=== PATIENT | female | born 1980 | race Caucasian/White ===

== ENCOUNTER 2016-06-15 15:58 | Emergency (ER) | payer OTHER ==
[~2016-06-15] VITALS: Wt 71.7 kg
[~2016-06-15 15:58] MED LIST: 'PARAFON FORTE500 M1 PO; AMOXICILLIN500 MG PO; ANAPROX DS550 MG PO; ATIVAN1 MG PO; AUGMENTIN 875875 MG PO; BACTRIM DS 8001 TA1 PO; CEPHALEXIN500 M1 PO; CIPRO500 MG PO; CIPROFLOXACIN500 MG PO; CLINDAMYCIN150 MG PO; CYCLOBENZAPRINE10 MG PO; DAYPRO600 M1 PO; DIAZEPAM2 MG PO; FLAGYL500 MG PO; GEODON20 MG PO; GEODON40 MG PO; HYDROCODONE BIT1 T11 PO; HYDROCORTISON28.4 G4 T; KEFLEX500 MG PO; LAMICTAL25 MG PO; MACRODANTIN100 M1 PO; MINIPRESS PO; MOTRIN800 MG PO; Motrin,Rufen800 MG PO; NAPROSYN500 MG PO; NORCO 325 MG-51 TAB PO; OMEPRAZOLE D/R20 MG PO; PENICILLIN VK500 MG PO; PERCOCET 325 MG1 TA2 PO; PRAZOSIN HCL2 MG PO; PREDNISONE20 M1 PO; PREDNISONE50 MG PO; PRENATAL1 TA3 PO; PROZAC10 MG PO; ROBAXIN750 MG PO; SEROQUEL400 MG PO; TRAMADOL HCL50 MG PO; TYLENOL WITH CO1 TA1 PO; VIBRA-TAB100 MG PO; VICODIN 5/500 505 MG PO; VICODIN 500 MG-1 TAB PO; VICODIN ES 7501 TAB PO; VOLTAREN50 M1 PO; XANAX0.5 MG PO; XANAX2 MG PO; ZANTAC150 MG PO; ZOFRAN4 MG PO; ZYRTEC10 MG PO; Zofran4 MG PO
[2016-06-15 16:09] VITALS: BP 115/77
[2016-06-15 16:44] LABS: BILIRUBIN NEGATIVE (NEGATIVE); BLOOD NEGATIVE (NEGATIVE); CLARITY SL CLOUDY (CLEAR); COLOR YELLOW (YELLOW); GLUCOSE NEGATIVE (NEGATIVE); KETONE NEGATIVE (NEGATIVE); LEUKO ESTERASE TRACE (NEGATIVE); NITRITE NEGATIVE (NEGATIVE); PH 6.5 (5.0-9.0); PROTEIN NEGATIVE (NEGATIVE); SPECIFIC GRAVITY 1.025 (1.005-1.030); UROBILINOGEN 0.2 E.U./dl (0.2-1.0)
[2016-06-15 16:54] LABS: BACTERIA 3+; MUCOUS TRACE; RBC 0-2 rbc/hpf (0-2); URINE REFLEX COMMENT YES (NO)
[2016-06-15] MEDS ORDERED: MACROBID100 M1 PO (17:21)
== END 2016-06-15 17:36 | disposition home or self-care (01) ==
LOC: ED 15:58
PROVIDERS: Emergency Medicine
DX: O23.43 Unspecified infection of urinary tract in pregnancy, third trimester (principal); Z3A.35 35 weeks gestation of pregnancy; F17.200 Nicotine dependence, unspecified, uncomplicated; F41.9 Anxiety disorder, unspecified; G89.29 Other chronic pain; M54.9 Dorsalgia, unspecified; Z87.442 Personal history of urinary calculi; Z88.6 Allergy status to analgesic agent

== ENCOUNTER 2016-08-04 20:10 | Emergency (ER) | payer OTHER ==
[~2016-08-04] VITALS: Ht 157.4 cm; Wt 46.7 kg
[~2016-08-04 20:10] MED LIST changes: +MACROBID100 M1 PO
[2016-08-04 20:38] VITALS: BP 100/76
[2016-08-04] MEDS ORDERED: CLINDAMYCIN150 MG PO (20:50)
[2016-08-04] MEDS ORDERED: Motrin,Rufen800 MG PO (20:50)
== END 2016-08-04 20:59 | disposition home or self-care (01) ==
LOC: ED 20:10
DX: K08.89 Other specified disorders of teeth and supporting structures (principal); F17.200 Nicotine dependence, unspecified, uncomplicated; F41.9 Anxiety disorder, unspecified; G89.29 Other chronic pain; M54.9 Dorsalgia, unspecified; Z88.6 Allergy status to analgesic agent; Z87.442 Personal history of urinary calculi; Z98.890 Other specified postprocedural states; Z79.899 Other long term (current) drug therapy

== ENCOUNTER 2018-12-06 15:40 | Emergency (ER) | payer OTHER ==
[~2018-12-06] VITALS: Ht 154.9 cm; Wt 45.4 kg
[2018-12-06 15:44] VITALS: BP 111/79
== END 2018-12-06 16:49 | disposition home or self-care (01) ==
LOC: ED 15:40
DX: R53.81 Other malaise (principal); R25.2 Cramp and spasm; Z76.0 Encounter for issue of repeat prescription; F17.200 Nicotine dependence, unspecified, uncomplicated; Z98.890 Other specified postprocedural states; Z88.6 Allergy status to analgesic agent

== ENCOUNTER 2018-12-26 06:21 | Emergency (ER) | payer OTHER ==
[~2018-12-26] VITALS: Ht 154.9 cm; Wt 53.1 kg
[2018-12-26 07:24] VITALS: BP 111/57
[2018-12-26 08:01] LABS: BASO % 0.5 % (0.0-1.0); EOS # 0.1 10*3/uL (0.0-0.4); EOS % 0.9 % (1.0-4.0); HEMATOCRIT 36.7 % (37.0-47.0); HEMOGLOBIN 12.2 g/dl (12.0-16.0); LYMPH # 1.4 10*3/uL (1.3-4.4); LYMPH % 17.5 % (27.0-41.0); MEAN CELL VOLUME 94.3 fl (81.0-99.0); MEAN CORPUSCULAR HGB 31.4 pg (27.0-31.0); MEAN CORPUSCULAR HGB CONC 33.2 g/dl (33.0-37.0); MEAN PLATELET VOLUME 9.5 fl (9.6-12.3); MONO # 0.6 10*3/uL (0.1-1.0); MONO % 8.2 % (3.0-9.0); NEUT # 5.7 10*3/uL (2.3-7.9); NEUT % 72.6 % (47.0-73.0); PLATELET COUNT AUTOMATED 215 10*3/uL (130-400); RED BLOOD COUNT 3.89 10*6/uL (4.10-5.10); WHITE BLOOD COUNT 7.8 10*3/uL (4.8-10.8)
[2018-12-26 08:15] LABS: ALBUMIN 4.1 gm/dl (3.1-4.5); ALKALINE PHOSPHATASE 62 U/L (45-117); BUN 15 mg/dl (7-24); CHLORIDE 108 mmol/L (98-107); CREATININE 0.77 mg/dL (0.55-1.02); POTASSIUM 3.4 mmol/L (3.5-5.1); SGOT/AST 23 IU/L (3-35); SGPT/ALT 39 U/L (12-78); SODIUM 138 mmol/L (136-145); TOTAL PROTEIN 7.2 gm/dL (6.4-8.2)
[2018-12-26 08:17] LABS: ETHYL ALCOHOL < 3.0 mg/dl (<3)
== END 2018-12-26 12:45 | disposition home or self-care (01) ==
LOC: ED 06:21
PROVIDERS: Emergency Medicine
DX: G89.29 Other chronic pain (principal); M54.9 Dorsalgia, unspecified; F17.200 Nicotine dependence, unspecified, uncomplicated; Z87.442 Personal history of urinary calculi

== ENCOUNTER 2021-01-18 04:07 | Emergency (ER) | payer OTHER ==
[2021-01-18 04:09] VITALS: BP 117/77
== END 2021-01-18 04:18 | disposition left against medical advice (07) ==
LOC: ED 04:07
DX: T50.901A Poisoning by unspecified drugs, medicaments and biological substances, accidental (unintentional), initial encounter (principal); R40.4 Transient alteration of awareness; Y92.89 Other specified places as the place of occurrence of the external cause

== ENCOUNTER 2022-03-09 20:51 | Emergency (ER) | payer OTHER ==
[~2022-03-09] VITALS: Ht 1554 cm; Wt 56.7 kg
[2022-03-09 21:18] VITALS: BP 130/52
[2022-03-09 22:12] LABS: BILIRUBIN Negative (Negative); BLOOD Negative (Negative); CLARITY Cloudy (Clear); COLOR Yellow (Yellow); GLUCOSE Negative (Negative); KETONE Negative (Negative); LEUKO ESTERASE 2+ (Negative); NITRITE Positive (Negative); SPECIFIC GRAVITY 1.025 (1.001-1.030); UROBILINOGEN 0.2 E.U./dl (0.0-1.0)
[2022-03-09 22:20] LABS: BACTERIA 2+; WBC 41-50 wbc/hpf (0-5)
[2022-03-09] MEDS ORDERED: CIPRO500 MG PO (22:31)
== END 2022-03-09 23:25 | disposition home or self-care (01) ==
LOC: ED 20:51
PROVIDERS: Internal Medicine
DX: N39.0 Urinary tract infection, site not specified (principal); Z87.891 Personal history of nicotine dependence

== ENCOUNTER 2022-04-21 18:39 | Emergency (ER) | payer OTHER ==
[~2022-04-21] VITALS: Wt 49.9 kg
[2022-04-21 20:54] LABS: BASO % 0.1 % (0.0-1.0); EOS # 0.2 10*3/uL (0.0-0.4); EOS % 1.1 % (1.0-4.0); HEMATOCRIT 38.4 % (37.0-47.0); LYMPH # 1.3 10*3/uL (1.3-4.4); LYMPH % 7.8 % (27.0-41.0); MEAN CELL VOLUME 89.1 fl (81.0-99.0); MEAN CORPUSCULAR HGB 30.2 pg (27.0-31.0); MEAN CORPUSCULAR HGB CONC 33.9 g/dl (33.0-37.0); MEAN PLATELET VOLUME 9.5 fl (9.6-12.3); MONO # 0.9 10*3/uL (0.1-1.0); MONO % 5.8 % (3.0-9.0); NEUT # 13.7 10*3/uL (2.3-7.9); NEUT % 84.8 % (47.0-73.0); PLATELET COUNT AUTOMATED 225 10*3/uL (130-400); RED BLOOD COUNT 4.31 10*6/uL (4.10-5.10); RED CELL DISTRI WIDTH 13.4 % (0-14.5); WHITE BLOOD COUNT 16.2 10*3/uL (4.8-10.8)
[2022-04-21 21:09] VITALS: BP 102/57
[2022-04-21 21:09] LABS: ALKALINE PHOSPHATASE 87 U/L (46-116); BUN 19 mg/dl (9-23); CHLORIDE 103 mmol/L (98-107); LIPASE 44 U/L (12-53); POTASSIUM 4.5 mmol/L (3.4-5.1); SGPT/ALT 38 U/L (10-49); TOTAL PROTEIN 7.8 gm/dL (6.0-8.0)
[2022-04-21 22:55] LABS: BILIRUBIN Negative (Negative); BLOOD Negative (Negative); CLARITY Cloudy (Clear); COLOR Yellow (Yellow); GLUCOSE Negative (Negative); KETONE 1+ (Negative); LEUKO ESTERASE 1+ (Negative); NITRITE Negative (Negative); SPECIFIC GRAVITY 1.025 (1.001-1.030)
[2022-04-21 23:01] LABS: URINE AMPHETAMINES Positive (1000ng/ml); URINE BARBITURATES Negative (200ng/ml); URINE BENZODIAZEPINES Negative (200ng/ml); URINE CANNABINOIDS (THC) Negative (50ng/ml); URINE COCAINE Negative (300ng/ml); URINE METHADONE Negative (300ng/ml); URINE OPIATES Negative (300ng/ml); URINE PHENCYCLIDINE Negative (25ng/ml)
[2022-04-21 23:10] LABS: URIC ACID CRYSTALS 2+
== END 2022-04-22 00:35 | disposition left against medical advice (07) ==
LOC: ED 18:39
PROVIDERS: Emergency Medicine
DX: K52.9 Noninfective gastroenteritis and colitis, unspecified (principal); R11.10 Vomiting, unspecified; Z79.899 Other long term (current) drug therapy

== ENCOUNTER 2022-06-28 13:54 | Emergency (ER) | payer OTHER ==
[~2022-06-28] VITALS: Ht 154.9 cm; Wt 54.4 kg
[2022-06-28 13:59] VITALS: BP 115/78
== END 2022-06-28 14:08 | disposition left against medical advice (07) ==
LOC: ED 13:54
DX: T50.904A Poisoning by unspecified drugs, medicaments and biological substances, undetermined, initial encounter (principal); Z87.442 Personal history of urinary calculi; Y92.89 Other specified places as the place of occurrence of the external cause

== ENCOUNTER 2022-07-06 16:36 | Emergency (ER) | payer OTHER | END 2022-07-06 17:58 | disposition left against medical advice (07) | LOC: ED 16:36 | DX: S89.91XA Unspecified injury of right lower leg, initial encounter (principal); Z53.21 Procedure and treatment not carried out due to patient leaving prior to being seen by health care provider; X58.XXXA Exposure to other specified factors, initial encounter; Y93.89 Activity, other specified; Y92.89 Other specified places as the place of occurrence of the external cause; Y99.8 Other external cause status ==

== ENCOUNTER 2022-07-09 13:34 | Emergency (ER) | payer OTHER ==
[~2022-07-09] VITALS: Ht 154.9 cm; Wt 56.7 kg
[2022-07-09 13:44] VITALS: BP 108/62
== END 2022-07-09 16:04 | disposition home or self-care (01) ==
LOC: ED 13:34
DX: S83.91XA Sprain of unspecified site of right knee, initial encounter (principal); Z87.442 Personal history of urinary calculi; Z98.890 Other specified postprocedural states; F17.200 Nicotine dependence, unspecified, uncomplicated; W01.0XXA Fall on same level from slipping, tripping and stumbling without subsequent striking against object, initial encounter; Y93.89 Activity, other specified; Y92.149 Unspecified place in prison as the place of occurrence of the external cause; Y99.8 Other external cause status

== ENCOUNTER → 2022-07-28 | Outpatient (CLI) | payer OTHER | END | disposition home or self-care (01) | LOC: MRI 13:00 | PROVIDERS: ATTEND Family Medicine | DX: S83.501D Sprain of unspecified cruciate ligament of right knee, subsequent encounter (principal); M25.461 Effusion, right knee; R60.0 Localized edema; X58.XXXD Exposure to other specified factors, subsequent encounter ==

== ENCOUNTER 2022-08-26 15:35 | Emergency (ER) | payer OTHER ==
[2022-08-26 16:09] VITALS: BP 120/65
[2022-08-26] MEDS ORDERED: CLINDAMYCIN HC300 MG PO (16:15)
== END 2022-08-26 17:24 | disposition home or self-care (01) ==
LOC: ED 15:35
DX: K13.0 Diseases of lips (principal); K04.7 Periapical abscess without sinus; Z98.890 Other specified postprocedural states; F17.200 Nicotine dependence, unspecified, uncomplicated

== ENCOUNTER 2022-09-15 11:06 | Emergency (ER) | payer OTHER ==
[~2022-09-15 11:06] MED LIST changes: +CLINDAMYCIN HC300 MG PO
== END 2022-09-15 11:18 | disposition left against medical advice (07) ==
LOC: ED 11:06
DX: T74.21XA Adult sexual abuse, confirmed, initial encounter (principal); Z53.21 Procedure and treatment not carried out due to patient leaving prior to being seen by health care provider

== ENCOUNTER 2022-09-18 23:13 | Emergency (ER) | payer OTHER ==
[~2022-09-18] VITALS: Ht 157.4 cm; Wt 51.7 kg
[2022-09-18 23:20] VITALS: BP 112/70
[2022-09-18 23:47] LABS: BASO % 0.2 % (0.0-1.0); EOS % 0.4 % (1.0-4.0); HEMATOCRIT 30.2 % (37.0-47.0); LYMPH # 1.9 10*3/uL (1.3-4.4); MEAN CELL VOLUME 91.5 fl (81.0-99.0); MEAN CORPUSCULAR HGB CONC 32.8 g/dl (33.0-37.0); MEAN PLATELET VOLUME 9.1 fl (9.6-12.3); MONO # 0.6 10*3/uL (0.1-1.0); MONO % 5.7 % (3.0-9.0); NEUT # 7.5 10*3/uL (2.3-7.9); NEUT % 74.4 % (47.0-73.0); PLATELET COUNT AUTOMATED 192 10*3/uL (130-400); WHITE BLOOD COUNT 10.1 10*3/uL (4.8-10.8)
[2022-09-19 00:03] LABS: ACT PARTIAL THROMBO TIME 27.6 SECONDS (20.0-32.1)
[2022-09-19 00:10] LABS: ALKALINE PHOSPHATASE 71 U/L (46-116); BUN 13 mg/dl (9-23); CHLORIDE 104 mmol/L (98-107); POTASSIUM 3.5 mmol/L (3.4-5.1); SGPT/ALT 30 U/L (10-49); TOTAL PROTEIN 6.9 gm/dL (6.0-8.0)
[2022-09-19 00:13] LABS: BILIRUBIN Negative (Negative); BLOOD Negative (Negative); CLARITY Cloudy (Clear); COLOR Yellow (Yellow); GLUCOSE Negative (Negative); KETONE Trace (Negative); LEUKO ESTERASE Trace (Negative); NITRITE Negative (Negative); SPECIFIC GRAVITY 1.025 (1.001-1.030)
[2022-09-19 00:19] LABS: URINE AMPHETAMINES Positive (1000ng/ml); URINE BARBITURATES Negative (200ng/ml); URINE BENZODIAZEPINES Positive (200ng/ml); URINE CANNABINOIDS (THC) Negative (50ng/ml); URINE COCAINE Positive (300ng/ml); URINE METHADONE Negative (300ng/ml); URINE OPIATES Positive (300ng/ml); URINE PHENCYCLIDINE Negative (25ng/ml)
[2022-09-19 00:26] LABS: BACTERIA 1+; MUCOUS 1+
== END 2022-09-19 00:55 | disposition home or self-care (01) ==
LOC: ED 23:13
PROVIDERS: Internal Medicine
DX: R09.1 Pleurisy (principal); Z98.890 Other specified postprocedural states; F17.210 Nicotine dependence, cigarettes, uncomplicated; Z87.442 Personal history of urinary calculi; Z79.899 Other long term (current) drug therapy

== ENCOUNTER 2023-03-13 19:19 | Emergency (ER) | payer OTHER ==
[~2023-03-13] VITALS: Ht 152.4 cm; Wt 56.7 kg
[2023-03-13 19:36] VITALS: BP 150/73
[2023-03-13] MEDS ORDERED: VIBRAMYCIN100 MG PO (19:37)
== END 2023-03-13 19:46 | disposition home or self-care (01) ==
LOC: ED 19:19
DX: L73.2 Hidradenitis suppurativa (principal); E88.09 Other disorders of plasma-protein metabolism, not elsewhere classified; F41.9 Anxiety disorder, unspecified; R73.9 Hyperglycemia, unspecified; Z87.442 Personal history of urinary calculi; Z98.890 Other specified postprocedural states; F17.210 Nicotine dependence, cigarettes, uncomplicated; F19.10 Other psychoactive substance abuse, uncomplicated

== ENCOUNTER 2023-04-20 06:37 | Emergency (ER) | payer OTHER ==
[~2023-04-20] VITALS: Ht 154.9 cm; Wt 56.7 kg
[~2023-04-20 06:37] MED LIST changes: +VIBRAMYCIN100 MG PO
[2023-04-20 06:56] VITALS: BP 94/63
[2023-04-20] MEDS ORDERED: ONDANSETRON4 MG SL (07:08)
[2023-04-20] MEDS ORDERED: VIBRAMYCIN100 MG PO (07:08)
== END 2023-04-20 07:21 | disposition home or self-care (01) ==
LOC: ED 06:37
DX: L02.416 Cutaneous abscess of left lower limb (principal); F17.210 Nicotine dependence, cigarettes, uncomplicated; Z98.890 Other specified postprocedural states; Z87.442 Personal history of urinary calculi

== ENCOUNTER 2023-10-21 08:44 | Emergency (ER) | payer OTHER ==
[~2023-10-21 08:44] MED LIST changes: +ONDANSETRON4 MG SL
[2023-10-21 09:07] VITALS: BP 111/71
[2023-10-21] MEDS ORDERED: SODIUM CHLORIDE 0.9% 1,000 ML IV ONE (09:15)
[2023-10-21] MEDS ORDERED: methylPREDNISolone sod succ 125 MG VIAL IV ONE (09:15)
[2023-10-21 09:57] LABS: HEMATOCRIT 33.1 % (37.0-47.0); MEAN CELL VOLUME 89.2 fl (81.0-99.0); MEAN CORPUSCULAR HGB 29.1 pg (27.0-31.0); MEAN CORPUSCULAR HGB CONC 32.6 g/dl (33.0-37.0); MEAN PLATELET VOLUME 10.6 fl (9.6-12.3); PLATELET COUNT AUTOMATED 131 10*3/uL (130-400); RED BLOOD COUNT 3.71 10*6/uL (4.10-5.10); RED CELL DISTRI WIDTH 13.5 % (0-14.5); WHITE BLOOD COUNT 4.3 10*3/uL (4.8-10.8)
[2023-10-21] MEDS ORDERED: methylPREDNISolone sod succ 125 MG VIAL IM ONE (10:00)
[2023-10-21 10:15] LABS: MANUAL DIFF REFLEX YES
[2023-10-21 10:19] LABS: BUN 12 mg/dl (9-23); CHLORIDE 102 mmol/L (98-107); POTASSIUM 3.7 mmol/L (3.4-5.1)
[2023-10-21 10:26] LABS: ATYPICAL LYMPHS 2 % (0-0); PLATELET SUFFICIENCY NORMAL (NORMAL); TOTAL CELLS COUNTED 100 #CELLS
[2023-10-21] MEDS ORDERED: TRIAMCINOLONE430 GM TD (10:34)
[2023-10-21] MEDS ORDERED: PREDNISONE20 M1 PO (10:34)
[2023-10-21] MEDS ORDERED: VISTARIL25 MG PO (10:34)
== END 2023-10-21 10:40 | disposition home or self-care (01) ==
LOC: ED 08:44
PROVIDERS: Emergency Medicine
DX: T54.91XA Toxic effect of unspecified corrosive substance, accidental (unintentional), initial encounter (principal); L25.3 Unspecified contact dermatitis due to other chemical products; I10 Essential (primary) hypertension; F32.A Depression, unspecified; F41.9 Anxiety disorder, unspecified; F17.210 Nicotine dependence, cigarettes, uncomplicated; F19.10 Other psychoactive substance abuse, uncomplicated; Z87.442 Personal history of urinary calculi; Z98.890 Other specified postprocedural states; Y92.89 Other specified places as the place of occurrence of the external cause

== ENCOUNTER 2024-01-29 03:18 | Emergency (ER) | payer OTHER ==
[~2024-01-29] VITALS: Ht 154.9 cm; Wt 54.0 kg
[~2024-01-29 03:18] MED LIST changes: +TRIAMCINOLONE430 GM TD; +VISTARIL25 MG PO
[2024-01-29 03:30] VITALS: BP 118/75
[2024-01-29] MEDS ORDERED: CEPHALEXIN 500 MG CAP PO ONE (04:10)
[2024-01-29] MEDS ORDERED: Doxycycline Hyclate 100 MG CAP PO ONE (04:10)
[2024-01-29] MEDS ORDERED: CEPHALEXIN500 M1 PO (04:11)
[2024-01-29] MEDS ORDERED: VIBRAMYCIN100 MG PO (04:11)
== END 2024-01-29 04:25 | disposition left against medical advice (07) ==
LOC: ED 03:18
DX: L02.31 Cutaneous abscess of buttock (principal); F15.10 Other stimulant abuse, uncomplicated; F41.9 Anxiety disorder, unspecified; F17.210 Nicotine dependence, cigarettes, uncomplicated; Z53.29 Procedure and treatment not carried out because of patient's decision for other reasons; Z87.442 Personal history of urinary calculi; Z98.890 Other specified postprocedural states